=== PATIENT | female | born 1955 | race Caucasian/White ===

== ENCOUNTER 2017-01-31 08:41 | Day surgery (SDC) | payer BC ==
--- NOTE | ~2017-01-31 | EGD ---
EGD REPORT [facility] [address] [place] [address] NAME: MICHELLE MOY : [birth year] STATUS : REG [facility]#: [id number] AGE: 61 ADM/REG DATE : 01/31/17 MR#: [id number] REPORT SERV DATE: 01/31/17 DICTATED BY: AREN RENNER DATE: 01/31/17 REPORT STATUS : Draft [facility] DATE: 01/31/17 Endoscopy Center Patient Name: Michelle Moy Date of : 1955 Attending MD: AREN RENNER, Procedure Date No Time: 01/31/2017 Procedure: Colonoscopy Indications: This is the patient's first colonoscopy, Abdominal pain, Chronic diarrhea Referring MD: MUKUND GARDUNO Medicines: Propofol per Anesthesia Complications: No immediate complications. Estimated blood loss: None. Procedure: Pre-Anesthesia Assessment: - ASA Grade Assessment: II - A patient with mild systemic disease. After I obtained informed consent, the scope was passed under direct vision. Throughout the procedure, the patient's blood pressure, pulse, and oxygen saturations were monitored continuously. The [facility] [id number] was introduced through the anus and advanced to the cecum, identified by appendiceal orifice and ileocecal valve. The colonoscopy was performed with ease. The patient tolerated the procedure well. The quality of the bowel preparation was good. Findings: The perianal exam was abnormal. Findings include skin tags. Two sessile polyps were found in the rectum and in the sigmoid colon. The polyps were 4 mm in size. These polyps were removed with a cold biopsy forceps. Resection and retrieval were complete. Estimated blood loss: none. Multiple small-mouthed diverticula were found in the entire colon. Anal papilla(e) were hypertrophied. Biopsies were taken with a cold forceps from the entire colon for evaluation of microscopic colitis. Estimated blood loss: none. Impression: - Perianal skin tags found on perianal exam. - Two 4 mm polyps in the rectum and in the sigmoid colon. Resected and retrieved. - Diverticulosis in the entire examined colon. - Anal papilla(e) were hypertrophied. Recommendation: - Patient has a contact number available for emergencies. The signs and symptoms of potential delayed complications were discussed with the patient. Return to EGD REPORT [place] [id number] [facility]. [address] NAME: MICHELLE MOY : [birth year] STATUS : REG [facility]#: [id number] AGE: 61 ADM/REG DATE : 01/31/17 MR#: [id number] REPORT SERV DATE: 01/31/17 DICTATED BY: AREN RENNER DATE: 01/31/17 REPORT STATUS : Draft [facility]ANS[facility] BY: [facility] DATE: 01/31/17 normal activities tomorrow. Written discharge instructions were provided to the patient. - Full liquids today, soft diet tomorrow, and resume regular diet the day after tomorrow. - Discharge patient to home (with escort). - Continue present medications. - Await pathology results. - Return to GI clinic in 4 weeks. - Repeat colonoscopy in 5 years for surveillance. Procedure Code(s): --- Professional --- 95754, Colonoscopy, flexible, proximal to splenic flexure; with biopsy, single or multiple Diagnosis Code(s): --- Professional --- K64.4, Residual hemorrhoidal skin tags K62.1, Rectal polyp D12.5, Benign neoplasm of sigmoid colon K57.30, Diverticulosis of large intestine without perforation or abscess without bleeding K62.89, Other specified diseases of anus and rectum R10.9, Unspecified abdominal pain K52.9, Noninfective gastroenteritis and colitis, unspecified CPT copyright 2013 [employer]. All rights reserved. The codes documented in this report are preliminary and upon heel painter review may be revised to meet current compliance requirements. AREN RENNER, 01/31/2017 11:37 AM This report has been signed electronically. Number of Addenda: 0 Note Initiated On: 01/31/2017 10:37 AM Scope Withdrawal Time 0 hours 10 minutes 48 seconds [id number] [id number]
--- NOTE | ~2017-01-31 | EGD ---
EGD REPORT [facility] [address] [place]. [address] NAME: MICHELLE MOY : [birth year] STATUS : REG [facility]#: [id number] AGE: 61 ADM/REG DATE : 01/31/17 MR#: [id number] REPORT SERV DATE: 01/31/17 DICTATED BY: AREN RENNER DATE: 01/31/17 REPORT STATUS : Draft [facility]: [facility] DATE: 01/31/17 Endoscopy Center Patient Name: Michelle Moy Date of : 1955 Attending MD: AREN RENNER, Procedure Date No Time: 01/31/2017 Procedure: Upper GI endoscopy Indications: Dysphagia, Diarrhea Referring MD: MUKUND GARDUNO Medicines: Propofol per Anesthesia Complications: No immediate complications. Estimated blood loss: Minimal. Procedure: Pre-Anesthesia Assessment: - ASA Grade Assessment: II - A patient with mild systemic disease. After obtaining informed consent, the endoscope was passed under direct vision. Throughout the procedure, the patient's blood pressure, pulse, and oxygen saturations were monitored continuously. The GIF H190 [id number] was introduced through the mouth, and advanced to the second part of duodenum. The upper GI endoscopy was accomplished with ease. The patient tolerated the procedure well. Findings: No endoscopic abnormality was evident in the esophagus to explain the patient's complaint of dysphagia. It was decided, however, to proceed with dilation. A guidewire was placed and the scope was withdrawn. Dilation was performed with a Savary dilator with mild resistance at 60 Fr. Estimated blood loss was minimal as on reinsertion of the endoscope, heme was seen in the distal esophagus, suggesting the presence of a ring, not previously clearly seen. The Z-line was found 44 cm from the incisors. Diffuse mildly erythematous mucosa was found in the gastric body and in the gastric antrum. Estimated blood loss: none. Biopsies were taken with a cold forceps for histology. Estimated blood loss: none. The duodenal bulb and 2nd part of the duodenum were normal. Biopsies were taken with a cold forceps for evaluation of celiac disease. Estimated blood loss: none. Impression: - No endoscopic esophageal abnormality to explain patient's dysphagia. Esophagus dilated. Dilated. - Z-line 44 cm from the incisors. - Erythematous mucosa in the gastric body and antrum. Biopsied. EGD REPORT [place] [id number] [facility] [place]. [address] NAME: MICHELLE MOY CARMEN : [birth year] STATUS : REG [facility]#: [id number] AGE: 61 ADM/REG DATE : 01/31/17 MR#: [id number] REPORT SERV DATE: 01/31/17 DICTATED BY: AREN RENNER DATE: 01/31/17 REPORT STATUS : Draft TRANSCRIBED BY: [facility] DATE: 01/31/17 - Normal duodenal bulb and 2nd part of the duodenum. Biopsied. Recommendation: - Patient has a contact number available for emergencies. The signs and symptoms of potential delayed complications were discussed with the patient. Return to normal activities tomorrow. Written discharge instructions were provided to the patient. - Discharge patient to home (with escort). - Full liquids today, soft diet tomorrow, and resume regular diet the day after tomorrow. - Continue present medications. - Use Prilosec (omeprazole) 40 mg PO daily. - Await pathology results. - Return to GI clinic in 4 weeks. Procedure Code(s): --- Professional --- 55656, Esophagogastroduodenoscopy, flexible, transoral; with insertion of guide wire followed by passage of dilator(s) through esophagus over guide wire 58956, Esophagogastroduodenoscopy, flexible, transoral; with biopsy, single or multiple Diagnosis Code(s): --- Professional --- R13.10, Dysphagia, unspecified K31.9, Disease of stomach and duodenum, unspecified R19.7, Diarrhea, unspecified CPT copyright 2013 [employer]. All rights reserved. The codes documented in this report are preliminary and upon thermoforming machine operator review may be revised to meet current compliance requirements. AREN RENNER, 01/31/2017 11:11 AM This report has been signed electronically. Number of Addenda: 0 Note Initiated On: 01/31/2017 10:26 AM Scope Withdrawal Time 0 hours 0 minutes 0 seconds [id number] [place] [id number]
[~2017-01-31 08:41] MED LIST: DOX10 PO; NORV10 PO; PROAIR HFA INH; VITAMIN D31000 UNIT PO; ZYPREXA7.5 MG PO
== END 2017-01-31 23:59 | disposition home or self-care (01) ==
LOC: DMU 08:41
PROVIDERS: Internal Medicine Gastroenterology
PROC: 0DBN8ZX Excision of Sigmoid Colon, Via Natural or Artificial Opening Endoscopic, Diagnostic (ICD-10-PCS; 2017-01-31)
PROC: 0DB68ZX Excision of Stomach, Via Natural or Artificial Opening Endoscopic, Diagnostic (ICD-10-PCS; 2017-01-31)
PROC: 0DB88ZX Excision of Small Intestine, Via Natural or Artificial Opening Endoscopic, Diagnostic (ICD-10-PCS; 2017-01-31)
PROC: 0D758ZZ Dilation of Esophagus, Via Natural or Artificial Opening Endoscopic (ICD-10-PCS; principal; 2017-01-31 10:00)
PROC: 0DBP8ZX Excision of Rectum, Via Natural or Artificial Opening Endoscopic, Diagnostic (ICD-10-PCS; 2017-01-31 10:00)
PROC: 0DBE8ZX Excision of Large Intestine, Via Natural or Artificial Opening Endoscopic, Diagnostic (ICD-10-PCS; 2017-01-31 10:00)
DX: K62.1 Rectal polyp (principal); K63.5 Polyp of colon; K64.4 Residual hemorrhoidal skin tags; K29.50 Unspecified chronic gastritis without bleeding; K57.30 Diverticulosis of large intestine without perforation or abscess without bleeding; K62.89 Other specified diseases of anus and rectum; K31.9 Disease of stomach and duodenum, unspecified; I10 Essential (primary) hypertension; J45.909 Unspecified asthma, uncomplicated; F41.9 Anxiety disorder, unspecified; F31.9 Bipolar disorder, unspecified; Z90.49 Acquired absence of other specified parts of digestive tract; Z98.890 Other specified postprocedural states
CPT/HCPCS: 88305; 88342